=== PATIENT | male | born 1985 | race Hispanic/Latino ===

== ENCOUNTER 2019-05-18 04:00 | Emergency (ER) | payer OTHER ==
--- NOTE | 2019-05-18 07:37 | RAD ---
XR Chest 1 View Portable HISTORY: Medical clearance COMPARISON: None FINDINGS: The heart size is normal. The lungs are well expanded without focal areas of consolidation, pneumothorax or pleural effusions. IMPRESSION: No radiographic evidence of acute cardiopulmonary process.
== END 2019-05-18 04:50 ==
LOC: ERS 04:00
DX: F10.129 Alcohol abuse with intoxication, unspecified (principal); F17.210 Nicotine dependence, cigarettes, uncomplicated; V89.2XXA Person injured in unspecified motor-vehicle accident, traffic, initial encounter
CPT/HCPCS: 71045

== ENCOUNTER 2019-09-29 17:05 | Emergency (ER) | payer SELFPAY | END 2019-09-29 18:15 | disposition home or self-care (01) | LOC: ERS 17:05 | DX: B34.9 Viral infection, unspecified (principal); H92.01 Otalgia, right ear; F17.210 Nicotine dependence, cigarettes, uncomplicated | CPT/HCPCS: 87081; 87430; 99283 ==